=== PATIENT | female | born 1995 | race Caucasian/White ===

== ENCOUNTER 2017-12-16 14:58 | Outpatient (CLI) | payer BC, MEDICAID, SELFPAY ==
--- NOTE | 2017-12-16 15:44 | DI.RAD_ITS ---
SYMPTOMS/DIAGNOSIS: DECREASED SOUNDS, COUGH, ? PNEUMONIA PA AND LATERAL CHEST: The heart is normal in size. The lungs are clear. The mediastinal structures and pleura appear intact. SUMMARY: Normal chest.
== END 2017-12-16 15:18 ==
PROVIDERS: PCP Nurse Practitioner Family; Visit Provider Student in an Organized Health Care Education/Training Program
DX: R05 Cough (principal); R09.89 Other specified symptoms and signs involving the circulatory and respiratory systems
CPT/HCPCS: 71046

== ENCOUNTER 2018-05-09 02:22 | Outpatient (CLI) | payer BC, SELFPAY ==
[2018-05-09] MEDS: Inhaler, Assist Device 1 EACH MC (14:33)
[2018-05-09] MEDS: Methacholine 100 MG VIAL IH (14:40)
[2018-05-09] MEDS: Albuterol HFA 18 GM 200 PUFF INH IH (15:24)
--- NOTE | 2018-05-09 16:37 | PFT_ITS ---
PULMONARY FUNCTION TEST REPORT DATE OF SERVICE: May 09, 2018 REQUESTING PROVIDER: Lisa Reagan M.D. Spirometry shows no evidence of obstructive airways disease, no bronchodilator response. Lung volumes show no evidence of restriction. Diffusion capacity normal. Airways resistance normal. IMPRESSION: Normal pulmonary function study. Clinical correlation recommended.
--- NOTE | 2018-05-09 16:41 | PFT_ITS ---
METHACHOLINE CHALLENGE TESTING DATE OF SERVICE: May 09, 2018 After normal pulmonary function study, methacholine challenge testing was carried out without good patient effort, up to a methacholine concentration of 16 mg/mL. At that point the patient had a 14% drop in FEV1. IMPRESSION: Overall negative methacholine challenge test, though the patient had a gradual decline in FEV1, it did not meet the criteria by ATS to be considered positive. Clinical correlation recommended. WON/viktoriya D/
== END 2018-05-09 02:42 ==
PROVIDERS: PCP Nurse Practitioner Family; Visit Provider Internal Medicine
DX: J45.909 Unspecified asthma, uncomplicated (principal); R05 Cough; R06.2 Wheezing
CPT/HCPCS: 94060; 94150; 94726; 94729; 95070; 94010; J7674

== ENCOUNTER 2020-01-23 09:51 | Outpatient (CLI) | payer BC, SELFPAY ==
[2020-01-25 21:37] LABS: COVID-19 RT-PCR Result NEGATIVE (Negative)
== END 2020-01-23 10:11 ==
PROVIDERS: PCP Nurse Practitioner Family; Visit Provider Nurse Practitioner Family
DX: Z20.828 Contact with and (suspected) exposure to other viral communicable diseases (principal)
CPT/HCPCS: U0003

== ENCOUNTER 2020-06-27 10:52 | Outpatient (REF) | payer BC, SELFPAY ==
--- NOTE | 2020-06-27 09:00 | PAPFT_PTH ---
PATIENT: Olga Tijerina LOC: [facility] U#:[id number] AGE/SX: 25/F ROOM: RE06/27/[address]: Susanna Lane APRN : 1995 BED: DIS: 06/27/2020 SPEC #: [id number] RECD: 06/27/20 18:11 STATUS: VANESSA RESharla #: [id number] KAYODE: 06/27/20 09:[address]: Susanna Lane DEPT: [facility] Cytology RECD BY: Gwen Meyer Tissues: 1 - CX/ENDOCX FOR PAP SMEARS Procedures: PAP THIN PREP/[facility] Screening Comments: [id number]
== END 2020-06-27 10:53 | disposition home or self-care (01) ==
LOC: LBN 10:52
PROVIDERS: PCP Nurse Practitioner Family; Referring Provider Nurse Practitioner Family; Visit Provider Nurse Practitioner Family
DX: Z12.4 Encounter for screening for malignant neoplasm of cervix (principal)
CPT/HCPCS: 88142

== ENCOUNTER 2021-06-30 04:07 | Outpatient (CLI) | payer BC, SELFPAY ==
[2021-06-30 08:36] LABS: Anion Gap 9.9 mmol/L (3-11); BUN 15 mg/dL (7-18); CO2 26.1 mmol/L (21.0-32.0); Chloride 105 mmol/L (98-107); Glucose 122 mg/dL (74-106); Sodium 141 mmol/L (136-145)
[2021-06-30 17:01] LABS: Calculated LDL 109 mg/dL (<100); Cholesterol 181 mg/dL (<200); HDL Cholesterol 60 mg/dL (40-60); Triglyceride 64 mg/dL (<150)
== END 2021-06-30 04:08 | disposition home or self-care (01) ==
LOC: LBO 04:07
PROVIDERS: PCP Nurse Practitioner Family; Visit Provider Nurse Practitioner Family
DX: N92.0 Excessive and frequent menstruation with regular cycle (principal); E66.9 Obesity, unspecified; Z13.1 Encounter for screening for diabetes mellitus; Z13.220 Encounter for screening for lipoid disorders
CPT/HCPCS: 36415; 80048; 80061; 84443

== ENCOUNTER 2023-01-19 14:17 | Outpatient (REF) | payer BC, SELFPAY | END 2023-01-19 14:18 | disposition home or self-care (01) | LOC: LBN 14:17 | PROVIDERS: PCP Nurse Practitioner Family; Visit Provider Advanced Practice Midwife | DX: N94.4 Primary dysmenorrhea (principal); N90.89 Other specified noninflammatory disorders of vulva and perineum | CPT/HCPCS: 87480; 87510; 87660 ==

== ENCOUNTER 2023-06-04 01:20 | Outpatient (CLI) | payer BC, SELFPAY ==
[2023-06-04 12:43] LABS: Abs Immature Grans 0.03 10^3/uL (0.0-0.06); Absolute Basophil Count 0.06 10^3/uL (0.0-0.2); Absolute Lymphocyte Count 2.58 10^3/uL (1.2-3.4); Absolute Monocyte Count 0.35 10^3/uL (0.1-0.8); Absolute Neutrophil Count 2.98 10^3/uL (1.2-6.7); Eosinophils % 4.8; HCT 40.9 % (36.0-46.0); Immature Grans % 0.5; MCHC 34.2 % (32.0-36.0); MCV 88 fL (80-95); MPV 10.3 fL (8.0-11.0); Monocytes % 5.6; Neutrophils % 47.1; Platelet Count 226 10^3/uL (130-400); RBC 4.67 10^6/uL (3.93-5.22); RDW 12.1 % (11.7-14.6); RDW-SD 38.7 fL
[2023-06-04 14:06] LABS: ALT 18 U/L (14-59); AST 6 U/L (15-37); Albumin 3.7 g/dL (3.4-5.0); Alkaline Phosphatase 94 U/L (46-116); Anion Gap 11.6 mmol/L (3-11); BUN 2 mg/dL (7-18); Bilirubin, Total 0.6 mg/dL (0.2-1.0); CO2 25.4 mmol/L (21.0-32.0); CREATININE 0.8 mg/dL (0.55-1.02); Calcium 8.8 mg/dL (8.5-10.1); Chloride 102 mmol/L (98-107); Estimated GFR 102.22 (mL/min/1.73m2); Glucose 295 mg/dL (74-106); Potassium 3.7 mmol/L (3.5-5.1); Sodium 139 mmol/L (136-145); TSH (W/Ref FT4) 2.39 uIU/mL (0.36-3.74); Total Protein 6.9 g/dL (6.4-8.2)
== END 2023-06-04 01:21 | disposition home or self-care (01) ==
LOC: LBO 01:20
PROVIDERS: PCP Nurse Practitioner Family; Referring Provider Family Medicine; Visit Provider Family Medicine
DX: R63.4 Abnormal weight loss (principal)
CPT/HCPCS: 36415; 80053; 84443; 85025

== ENCOUNTER 2023-06-11 10:34 | Outpatient (CLI) | payer BC, SELFPAY | END 2023-06-11 10:35 | disposition home or self-care (01) | LOC: LBO 10:34 | PROVIDERS: PCP Nurse Practitioner Family; Visit Provider Family Medicine | DX: E13.9 Other specified diabetes mellitus without complications (principal) | CPT/HCPCS: 36415; 86337 ==